=== PATIENT | female | born 1950 | race Caucasian/White ===

== ENCOUNTER → 2018-03-27 | Outpatient (CLI) | payer MEDICARE | END | disposition home or self-care (01) | LOC: PCVCCLINIC 14:30 | PROVIDERS: ATTEND Internal Medicine | DX: R42 Dizziness and giddiness (principal); I10 Essential (primary) hypertension; E78.5 Hyperlipidemia, unspecified; Z88.0 Allergy status to penicillin; Z79.899 Other long term (current) drug therapy | CPT/HCPCS: 93005; G0463 ==

== ENCOUNTER → 2018-04-03 | Outpatient (CLI) | payer MEDICARE ==
[~2018-04-03] MED LIST: REGADENOSON 0.4 MG/5 ML DISP.SYRIN. IV ONE
--- NOTE | 2018-04-03 17:21 | PCVCIMAG ---
APPROVED REPORT Study performed: 04/03/2018 07:53:57 EXAM: Comprehensive 2D, Doppler, and color-flow Echocardiogram Patient Location: Echo lab Status: routine BSA: 1.70 HR: 55 bpmBP: 130/76 mmHg Rhythm: Bradycardia Other Information Study Quality: Good Indications Pre-syncope Lightheadedness 2D Dimensions LVEF(%): 57.30 (>50%) IVSd: 7.37 (7-11mm)LVOT Diam: 19.00 (18-24mm) LVDd: 38.45 mm PWd: 9.03 (7-11mm)Ascending Ao: 29.55 (22-36mm) LVDs: 27.08 (25-40mm) Left Atrium: 29.36 (27-40mm) Aortic Root: 26.01 mm LV Single Plane 4CH: 58.93 % LV Single Plane 2CH: 62.00 %Carbajal's LVEF: 60.47 % Biplane EF: 63.1 % Volumes Left Atrial Volume (Systole) Single Plane 4CH: 44.49 mLSingle Plane 2CH: 33.25 mL LA ESV Index: 24.00 mL/m2 Aortic Valve AoV Peak Perez.: 1.39 m/s AO Peak Gr.: 7.72 mmHgLVOT Max P.89 mmHg LVOT Max V: 1.11 m/s BRENDON Vmax: 2.21 cm2 Mitral Valve E/A Ratio: 0.8 MV Decel. Time: 287.08 ms MV E Max Perez.: 0.71 m/s MV A Perez.: 0.88 m/s IVRT: 58.82 ms TDI E/Lateral E': 8.88E/Medial E': 14.20 Medial E' Perez.: 0.05 m/s Lateral E' Perez.: 0.08 m/s Pulmonary Valve PV Peak Perez.: 0.73 m/sPV Peak Gr.: 2.11 mmHg Pulmonary Vein P Vein S: 0.59 m/sP Vein A: 0.31 m/s P Vein D: 0.42 m/sP Vein A Dur.: 117.6 msec P Vein S/D Ratio: 1.40 Tricuspid Valve TR Peak Perez.: 2.17 m/sRAP Estimate: 7.00 mmHg TR Peak Gr.: 18.84 mmHg PA Pressure: 26.00 mmHg Left Ventricle The left ventricle is normal size. There is normal LV segmental wall motion. There is normal left ventricular wall thickness. Left ventricular systolic function is normal. The left ventricular ejection fraction is within the normal range. LVEF is 60-65%. Grade I - abnormal relaxation pattern. Right Ventricle The right ventricle is normal size. The right ventricular systolic function is normal. Atria The left atrium size is normal. The right atrium size is normal. Aortic Valve The aortic valve is normal in structure. No aortic regurgitation is present. There is no aortic valvular stenosis. Mitral Valve The mitral valve is normal in structure. Mild mitral regurgitation. No evidence of mitral valve stenosis. Tricuspid Valve The tricuspid valve is normal in structure. Trace tricuspid regurgitation. Pulmonary artery pressure is 26 mmHg. Pulmonic Valve The pulmonary valve is normal in structure. There is no pulmonic valvular regurgitation. Great Vessels The aortic root is normal in size. IVC is normal in size and collapses >50% with inspiration. Pericardium There is no pericardial effusion. <Conclusion> Left ventricular systolic function is normal. There is normal LV segmental wall motion. LVEF is 60-65%. Mild diastolic dysfunction The aortic valve is normal in structure. No aortic regurgitation or stenosis The mitral valve is normal in structure. Mild mitral regurgitation. Trace tricuspid regurgitation. Pulmonary artery pressure of 26 mmHg. There is no pericardial effusion.
--- NOTE | 2018-04-08 09:55 | PCVCIMAG ---
APPROVED REPORT Imaging Protocol: Rest Tc-99m/Stress Tc-99m 1 day Study performed: 04/03/2018 09:25:44 Indication: Lightheadedness, Pre-Syncope, Pre-Operative CV evaluation(Hip) Patient Location: Out-Patient Stress Nurse: Beth Grijalva RN, Kiki Prescott RN LA Tech:YAMIL Phillips Ht: 5 ft 4 in Wt: 137 lbs BSA: 1.67 m2 HR: 53 bpm BP: 171/81 mmHg BMI: 23.5 Rhythm: Sinus Bradycardia Medical History Medications: No meds Allergies: PCN Cardiac Risk Factors: Age Pretest Chest Pain Characteristics: No chest pain Physical Disabilities: Hips Resting Data Rest SPECT myocardial perfusion imaging was performed in supine position 45 minutes following the intravenous injection of 10.1 mCi of Tc-99m Sestamibi. Time of rest injection: 849 Date: 04/03/2018 Administration Route: IV Administration Site: Left AC Pharmacologic Stress Pharmacologic stress test was performed by injecting Regadenoson 0.4 mg IV push over 10-15 seconds immediately followed by the intravenous injection of 35.3 mCi of Tc-99m Sestamibi. Time of stress injection: 954 Date: 04/03/2018 Administration Route: IV Administration Site: Left AC Gated Stress SPECT was performed 45 minutes after stress injection. The images were gated to evaluate regional wall motion and calculate left ventricular ejection fraction. Stress Test Details Stress Test: Pharmacologic stress testing performed using 0.4 mg of regadenoson per 5 mL given IV over 10 seconds. Reason for pharmacologic stress test: Hip Surgery. HRMax Heart Rate (APMHR): 152 bpm Resting HR: 53 bpmTarget HR (85% APMHR): 129 bpm Max HR Achieved: 100 bpm % of APMHR: 65 Recovery HR: 78 bpm BP Resting BP: 171/81 mmHg Recovery BP: 152/72 mmHg ECG Resting ECG: Sinus Bradycardia Stress ECG: Sinus Tachycardia Arrhythmia: None Recovery ECG: Sinus Rhythm Clinical Reason for Termination: Completed protocol Stress Symptoms: Abdominal discomfort Exercise duration: 0 min 55 sec Symptoms resolved during recovery. Stress ECG Conclusion 1.Adequate response to iv lexiscan 2. inadequate heart rate for ecg diagnosis Study Data Post stress, the left ventricular ejection was 74%.. SSS: 5 SRS: 2 SDS: 3 TID = 0.95. Perfusion There is a small area of moderately reduced uptake in the apical segment of the inferior wall which is seen on the stress images and improves on the resting images. This area thickens and moves normally and is most consistent with ischemia ALTHOUGH ARTIFACT CANNOT BE EXCLUDED. Wall Motion Normal left ventricular wall motion. Nuclear Conclusion ECG Findings: non-diagnostic Clinical Findings: negative for ischemia Nuclear Findings: equivocal Exercise Capacity: not assessed Left Ventricular Function: normal 1. INTERMEDIATE RISK STUDY Interpreted by: Natalia Bender MD Electronically Approved: 04/08/2018 09:53:55 <Conclusion> 1.Adequate response to iv lexiscan 2. inadequate heart rate for ecg diagnosis
== END | disposition home or self-care (01) ==
LOC: PCVCIMAG 10:29
PROVIDERS: ATTEND Internal Medicine
DX: I05.1 Rheumatic mitral insufficiency (principal); R42 Dizziness and giddiness
CPT/HCPCS: 78452; 93017; 93306; A9500; J2785

== ENCOUNTER → 2018-04-17 | Outpatient (CLI) | payer MEDICARE | END | disposition home or self-care (01) | LOC: PCVCCLINIC 14:00 | PROVIDERS: ATTEND Internal Medicine | DX: I10 Essential (primary) hypertension (principal); R42 Dizziness and giddiness; E78.5 Hyperlipidemia, unspecified; Z88.0 Allergy status to penicillin | CPT/HCPCS: G0463 ==

== ENCOUNTER → 2019-04-23 | Outpatient (CLI) | payer MEDICARE | END | disposition home or self-care (01) | LOC: PCVCCLINIC 14:00 | PROVIDERS: ATTEND Internal Medicine | DX: I10 Essential (primary) hypertension (principal); E78.5 Hyperlipidemia, unspecified; Z88.0 Allergy status to penicillin | CPT/HCPCS: 36415; 80061 ==